=== PATIENT | male | born 2000 | race Caucasian/White ===

== ENCOUNTER 2021-07-11 13:12 | Emergency (ER) | payer SELFPAY ==
--- NOTE | 2021-07-11 14:24 | RAD REPORT ---
EXAM DESCRIPTION: RAD - Foot Right 3 View - 07/11/2021 1:57 pm CLINICAL HISTORY: PAIN, blunt force trauma to the fourth and fifth toes COMPARISON: No comparisons FINDINGS: There is no gross fracture deformity seen though the patient probably has nondisplaced fra ctures at the tuft of the fourth and fifth distal phalanges. The middle and distal phalanges of the f ifth toe are fused as a normal variant. The fourth and fifth toe IP joints are unremarkable. No other fracture or acute bone findings seen. Fourth and fifth distal toe soft tissue swelling is present without foreign body or air. IMPRESSION: Probable nondisplaced fractures of the fourth and fifth distal phalanges.
--- NOTE | 2021-07-11 14:41 | EDPHYS ---
Physician Documentation [facility] Name: Violeta Humphrey Age: 21 yrs Sex: Male : 2000 Arrival Date: 07/11/2021 Time: 13:18 Bed 10 Private MD: ED Physician Orlando Gaspar HPI: 07/11 13:31 This 21 yrs old Male presents to ER via Ambulatory with complaints of Foot jmm Pain. 13:31 The patient presents with an injury, a history of running out of pain medications. jmm Onset: The symptoms/episode began/occurred acutely, last night. Modifying factors: The symptoms are alleviated by remaining still, the symptoms are aggravated by movement. Associated signs and symptoms: Pertinent negatives calf tenderness, fever, numbness, rash, weakness. Patient states that he hit his foot against the leg of a table. Bruising developed today.. Historical: - Allergies: 13:23 No Known Allergies; tw2 - Home Meds: 13:23 None [Active]; tw2 - PMHx: 13:23 None; tw2 - PSHx: 13:23 None; tw2 - Immunization history:: Client reports having NOT received the Covid vaccine. - Social history:: Smoking status: Patient reports the use of cigarette tobacco products, smokes one-half pack cigarettes per day. ROS: 14:38 Constitutional: Negative for fever, chills, and weight loss, Cardiovascular: Negative jmm for chest pain, palpitations, and edema, Respiratory: Negative for shortness of breath, cough, wheezing, and pleuritic chest pain. 14:38 MS/extremity: Positive for injury or acute deformity, pain. 14:38 All other systems are negative. Exam: 14:38 Constitutional: This is a well developed, well nourished patient who is awake, alert, jmm and in no acute distress. Head/Face: atraumatic. Eyes: EOMI, no conjunctival erythema appreciated ENT: Moist Mucus Membranes Neck: Trachea midline, Supple Chest/axilla: Normal chest wall appearance and motion. Cardiovascular: Regular rate and rhythm. No edema appreciated Respiratory: Normal respirations, no respiratory distress appreciated Abdomen/GI: Non distended, soft Back: Normal ROM 14:38 Skin: Ecchymosis noted to the dorsal surface of the left foot at the base of the fourth and fifth metatarsal. 14:38 Neuro: Orientation: is normal, Mentation: is normal, Memory: is normal. 14:38 Psych: Behavior/mood is pleasant, cooperative. Vital Signs: 13:21 BP 125 / 79; Pulse 98; Resp 18; Temp 99.5(TE); Pulse Ox 100% on R/A; Height 5 ft. 10 tw2 in. (177.80 cm) (R); 13:54 BP 128 / 80; Pulse 99; Resp 18; Pulse Ox 100% on R/A; Pain 7/10; jh5 14:44 BP 126 / 88; Pulse 90; Resp 18; Pulse Ox 100% on R/A; jh5 MDM: 13:31 Patient medically screened. [facility] 14:39 Data reviewed: vital signs, nurses notes. Counseling: I had a detailed discussion with kay the patient and/or guardian regarding: the historical points, exam findings, and any diagnostic results supporting the discharge/admit diagnosis, radiology results, the need for outpatient follow up, to return to the emergency department if symptoms worsen or persist or if there are any questions or concerns that arise at home. 07/11 13:31 Order name: Foot Right 3 View XRAY; Complete Time: 14:29 [facility] 07/11 14:30 Order name: Misc. Order: rocky tape, ortho shoe; Complete Time: 14:35 [facility] Administered Medications: No medications were administered Disposition: 15:26 Co-signature as Attending Physician, Orlando Gaspar MD I agree with the assessment and rn plan of care. Attestation: The patient's history, exam findings, diagnostics, and a summary of any interventions or procedures was reviewed in detail with Demetrio MCKEON. Disposition Summary: 07/11/21 14:40 Discharge Ordered Location: Home [facility] Condition: Stable [facility] Diagnosis - Toe Fracture [facility] Followup: [facility] - With: Lane Arthur DPM - When: 2 - 3 days - Reason: Recheck today's complaints, Continuance of care, Re-evaluation by your physician Discharge Instructions: - Toe Fracture [facility] - Toe Fracture Rehab-SportsMed [facility] - Discharge Summary Sheet tw2 Forms: - Medication Reconciliation Form [facility] - Thank You Letter [facility] - Antibiotic Education [facility] - Work release form tw2 - Prescription Opioid Use [facility] Signatures: Dispatcher [employer] Demetrio George PA PA jmm Nieto, Roman, MD MD rn SalcidoChanell RN RN tw2
--- NOTE | 2021-07-11 14:41 | ER ---
Nurse's Notes [facility] Name: Violeta Humphrey Age: 21 yrs Sex: Male : 2000 Arrival Date: 07/11/2021 Time: 13:18 Bed 10 Private MD: Diagnosis: Toe Fracture Presentation: 07/11 13:21 Chief complaint: Patient states: my RIGHT foot is hurting. i stubbed it on a chair last tw2 night. Chief complaint: Patient states: the baby toe is bruised and swollen. Coronavirus screen: At this time, the client does not indicate any symptoms associated with coronavirus-19. Ebola Screen: Patient denies travel to an Ebola-affected area in the 21 days before illness onset. Initial Sepsis Screen: Does the patient meet any 2 criteria? No. Patient's initial sepsis screen is negative. Does the patient have a suspected source of infection? No. Patient's initial sepsis screen is negative. Risk Assessment: Do you want to hurt yourself or someone else? Patient reports no desire to harm self or others. Onset of symptoms was July 11, 2021. 13:21 Method Of Arrival: Ambulatory tw2 13:21 Acuity: NEIL 4 tw2 Triage Assessment: 13:23 General: Appears in no apparent distress. slender, well groomed, Behavior is calm, tw2 cooperative, appropriate for age. Pain: Complains of pain in right fifth toe. Historical: - Allergies: 13:23 No Known Allergies; tw2 - Home Meds: 13:23 None [Active]; tw2 - PMHx: 13:23 None; tw2 - PSHx: 13:23 None; tw2 - Immunization history:: Client reports having NOT received the Covid vaccine. - Social history:: Smoking status: Patient reports the use of cigarette tobacco products, smokes one-half pack cigarettes per day. Screenin:26 Abuse screen: Denies threats or abuse. Nutritional screening: No deficits noted. tw2 Tuberculosis screening: No symptoms or risk factors identified. Fall Risk None identified. Assessment: 13:54 General: Appears in no apparent distress. comfortable, Behavior is calm, cooperative, jh5 appropriate for age. 13:54 Pain: Complains of pain in right foot Pain does not radiate. Pain currently is 7 out of jh5 10 on a pain scale. Quality of pain is described as throbbing, Pain began suddenly, Is continuous. Neuro: Level of Consciousness is awake, alert, obeys commands, Oriented to person, place, time, situation, Appropriate for age. Cardiovascular: Capillary refill < 3 seconds Patient's skin is warm and dry. Respiratory: Airway is patent Respiratory effort is even, unlabored, Respiratory pattern is regular, symmetrical. GI: Abdomen is flat, non-distended. : No signs and/or symptoms were reported regarding the genitourinary system. EENT: No signs and/or symptoms were reported regarding the EENT system. Derm: No signs and/or symptoms reported regarding the dermatologic system. Musculoskeletal: No signs and/or symptoms reported regarding the musculoskeletal system. 14:44 Reassessment: Patient appears in no apparent distress at this time. Patient is alert, jh5 oriented x 3, equal unlabored respirations, skin warm/dry/pink. Vital Signs: 13:21 BP 125 / 79; Pulse 98; Resp 18; Temp 99.5(TE); Pulse Ox 100% on R/A; Height 5 ft. 10 tw2 in. (177.80 cm) (R); 13:54 BP 128 / 80; Pulse 99; Resp 18; Pulse Ox 100% on R/A; Pain 7/10; jh5 14:44 BP 126 / 88; Pulse 90; Resp 18; Pulse Ox 100% on R/A; jh5 ED Course: 13:18 Patient arrived in ED. mr 13:23 Triage completed. tw2 13:23 Arm band placed on. tw2 13:24 Bed in low position. Call light in reach. tw2 13:25 Demetrio Carrera PA is PHCP. [facility] 13:25 Orlando Gaspar MD is Attending Physician. [facility] 13:53 Imani Malagon, DOMONIQUE is Primary Nurse. 5 13:54 No provider procedures requiring assistance completed. jh5 13:58 Foot Right 3 View XRAY In Process Unspecified. EDMS 14:39 Lane Arthur DPM is Referral Physician. [facility] 14:44 Patient did not have IV access during this emergency room visit. 5 Administered Medications: No medications were administered Outcome: 14:40 Discharge ordered by MD. [facility] 14:44 Discharged to home ambulatory. [facility] 14:44 Condition: stable 14:44 Discharge instructions given to patient, Instructed on discharge instructions, follow up and referral plans. Demonstrated understanding of instructions, follow-up care. 14:44 Patient left the ED. jh5 Signatures: Dispatcher [employer] Demetrio George PA PA jmm Rivera, Mary mr Omari Chanell, RN RN tw2 Imani Malagon RN RN jh5
[2021-07-11 15:12] VITALS: TEMP 99.5; O2SAT 100
[2021-07-11 15:15] VITALS: BP 126/88
== END 2021-07-11 14:44 | disposition home or self-care (01) ==
LOC: ER 13:12
DX: S92.534A Nondisplaced fracture of distal phalanx of right lesser toe(s), initial encounter for closed fracture (principal); W22.03XA Walked into furniture, initial encounter; F17.210 Nicotine dependence, cigarettes, uncomplicated
CPT/HCPCS: 99283

== ENCOUNTER 2021-10-04 17:55 | Emergency (ER) | payer SELFPAY ==
[2021-10-04 20:28] LABS: SARS-COV-2 RT PCR NEGATIVE (NEGATIVE)
--- NOTE | 2021-10-04 20:50 | EDPHYS ---
Physician Documentation [facility] Name: Violeta Humphrey Age: 21 yrs Sex: Male : 2000 Arrival Date: 10/04/2021 Time: 17:55 Bed 18 Private MD: ED Physician Orlando Gaspar HPI: 10/04 19:58 This 21 yrs old Male presents to ER via Ambulatory with complaints of Sore Throat, rn Headache. 19:58 The patient presents with sore throat. The patient describes throat pain as raw, rn scratchy. Onset: The symptoms/episode began/occurred 3 day(s) ago. Severity of symptoms: At their worst the symptoms were mild, in the emergency department the symptoms are unchanged. Modifying factors: The symptoms are alleviated by nothing, the symptoms are aggravated by nothing. Associated signs and symptoms: Pertinent positives: headache, rhinorrhea, Pertinent negatives fever, vomiting. The patient has not experienced similar symptoms in the past. The patient has not recently seen a physician. Patient reports 3 days of sore throat and rhinorrhea associated with headache. No fever. Reports 3 daughters with seen by clay art[employer] as they have similar symptoms and were diagnosed with upper respiratory infections without need for antibiotics. Patient denies shortness of breath.. Historical: - Allergies: 18:16 No Known Allergies; jl7 - Home Meds: 18:16 None [Active]; jl7 - PMHx: 18:16 None; jl7 - PSHx: 18:16 None; jl7 - Immunization history:: Client reports having NOT received the Covid vaccine. - Social history:: Smoking status: Patient reports the use of cigarette tobacco products, smokes one pack cigarettes per day. - Family history:: not pertinent. - Hospitalizations: : No recent hospitalization is reported. ROS: 19:58 Constitutional: Negative for fever, chills, and weight loss, Eyes: Negative for injury, rn pain, redness, and discharge, ENT: Positive for sore throat and rhinorrhea Neck: Negative for injury, pain, and swelling, Cardiovascular: Negative for chest pain, palpitations, and edema, Respiratory: Negative for shortness of breath, wheezing, and pleuritic chest pain, Abdomen/GI: Negative for abdominal pain, nausea, vomiting, diarrhea, and constipation, Back: Negative for injury and pain, : Negative for injury, bleeding, discharge, and swelling, MS/Extremity: Negative for injury and deformity, Skin: Negative for injury, rash, and discoloration, Neuro: Positive for headache Exam: 19:58 Constitutional: This is a well developed, well nourished patient who is awake, alert, rn and in no acute distress. Head/Face: Normocephalic, atraumatic. Eyes: Periorbital areas with no swelling, redness, or edema. ENT: Mild pharyngeal erythema without swelling or exudate Neck: Tender bilateral cervical lymphadenopathy Cardiovascular: Regular rate and rhythm. No pulse deficits. Respiratory: Speaking full sentences, unlabored. No increased work of breathing Abdomen/GI: Soft, non-tender Skin: Warm, dry MS/ Extremity: Pulses equal, no cyanosis. Neuro: Awake and alert, GCS 15 Vital Signs: 18:14 BP 124 / 66; Pulse 78; Resp 17; Temp 97.1; Pulse Ox 97% ; Weight 70.31 kg; Height 5 ft. jl7 10 in. (177.80 cm); Pain 5/10; 18:28 BP 121 / 53; Pulse 72; Resp 15; Pulse Ox 98% ; Pain 5/10; eo2 19:33 BP 119 / 68; Pulse 74; Resp 16 S; Pulse Ox 97% on R/A; lg3 21:13 BP 112 / 63; Pulse 66; Resp 16 S; Pulse Ox 97% on R/A; Pain 0/10; lg3 18:14 Body Mass Index 22.24 (70.31 kg, 177.80 cm) jl7 MDM: 19:01 Patient medically screened. rn 20:48 Differential diagnosis: group A strep tonsillitis, influenza, laryngitis, pharyngitis, rn upper respiratory infection, viral syndrome. Data reviewed: vital signs, nurses notes, lab test result(s), and as a result, I will discharge patient. Counseling: I had a detailed discussion with the patient and/or guardian regarding: the historical points, exam findings, and any diagnostic results supporting the discharge/admit diagnosis, lab results, the need for outpatient follow up, to return to the emergency department if symptoms worsen or persist or if there are any questions or concerns that arise at home. Special discussion: I discussed with the patient/guardian in detail that at this point there is no indication for admission to the hospital. It is understood, however, that if the symptoms persist or worsen the patient needs to return immediately for re-evaluation. ED course: COVID/Flu/Strep neg, daughters also tested and negative, told had viral infections, will dc home without abx, given return precautions.. 10/04 19:16 Order name: Strep; Complete Time: 20:48 rn 10/04 19:16 Order name: COVID-19/FLU A+B (Document "Date of Onset" if Symptomatic); Complete Time: rn 20:48 10/04 19:53 Order name: Throat Culture EDMS Administered Medications: No medications were administered Disposition Summary: 10/04/21 20:49 Discharge Ordered Location: Home rn Problem: new rn Symptoms: have improved rn Condition: Stable rn Diagnosis - Acute upper respiratory infection, unspecified rn Followup: rn - With: Private Physician - When: As needed - Reason: Recheck today's complaints, Re-evaluation by your physician Discharge Instructions: - Discharge Summary Sheet rn - Upper Respiratory Infection, Adult rn - Viral Respiratory Infection rn Forms: - Medication Reconciliation Form rn - Thank You Letter rn - Antibiotic information technology intern - Prescription Opioid Use rn - Work release form cs9 Signatures: Dispatcher [employer] EDMS Orlando Gaspar MD MD rn Leal, Jahala RN RN jl7
--- NOTE | 2021-10-04 20:50 | ER ---
Nurse's Notes [facility] Name: Violeta Humphrey Age: 21 yrs Sex: Male : 2000 Arrival Date: 10/04/2021 Time: 17:55 Bed 18 Private MD: Diagnosis: Acute upper respiratory infection, unspecified Presentation: 10/04 18:14 Chief complaint: Patient states: Sore throat and CHO since yesterday, denies fever. jl7 Coronavirus screen: headache, sore throat, Client presents with at least one sign or symptom that may indicate coronavirus-19. Standard/surgical mask placed on the client. Provider contacted for isolation considerations. Ebola Screen: No symptoms or risks identified at this time. Initial Sepsis Screen: Does the patient meet any 2 criteria? No. Patient's initial sepsis screen is negative. Does the patient have a suspected source of infection? No. Patient's initial sepsis screen is negative. Risk Assessment: Do you want to hurt yourself or someone else? Patient reports no desire to harm self or others. Onset of symptoms was October 03, 2021. Care prior to arrival: None. 18:14 Method Of Arrival: Ambulatory [facility] 18:14 Acuity: NEIL 4 jl7 Triage Assessment: 18:16 General: Appears in no apparent distress. uncomfortable, Behavior is calm, cooperative, jl7 appropriate for age. Pain: Complains of pain in sore throat. EENT: Reports pain in throat. Historical: - Allergies: 18:16 No Known Allergies; jl7 - Home Meds: 18:16 None [Active]; jl7 - PMHx: 18:16 None; jl7 - PSHx: 18:16 None; jl7 - Immunization history:: Client reports having NOT received the Covid vaccine. - Social history:: Smoking status: Patient reports the use of cigarette tobacco products, smokes one pack cigarettes per day. - Family history:: not pertinent. - Hospitalizations: : No recent hospitalization is reported. Screenin:28 Abuse screen: Denies threats or abuse. Denies injuries from another. Nutritional eo2 screening: No deficits noted. Tuberculosis screening: No symptoms or risk factors identified. Fall Risk None identified. Assessment: 18:28 General: Appears in no apparent distress. comfortable, Behavior is calm, cooperative, eo2 appropriate for age. Pain: Complains of pain in sore throat and headache. Neuro: Level of Consciousness is awake, alert, obeys commands, Oriented to person, place, time, situation, Reports headache since yesterday Denies weakness blurred vision numbness. Cardiovascular: No deficits noted. Denies chest pain, shortness of breath. Respiratory: Airway is patent Respiratory effort is even, unlabored, Breath sounds are clear bilaterally. EENT: Throat is clear reports sore throat onset yesterday. 19:32 Reassessment: Patient appears in no apparent distress at this time. No changes from lg3 previously documented assessment. Patient and/or family updated on plan of care and expected duration. Pain level reassessed. Patient is alert, oriented x 3, equal unlabored respirations, skin warm/dry/pink. Vital Signs: 18:14 BP 124 / 66; Pulse 78; Resp 17; Temp 97.1; Pulse Ox 97% ; Weight 70.31 kg; Height 5 ft. jl7 10 in. (177.80 cm); Pain 5/10; 18:28 BP 121 / 53; Pulse 72; Resp 15; Pulse Ox 98% ; Pain 5/10; eo2 19:33 BP 119 / 68; Pulse 74; Resp 16 S; Pulse Ox 97% on R/A; lg3 21:13 BP 112 / 63; Pulse 66; Resp 16 S; Pulse Ox 97% on R/A; Pain 0/10; lg3 18:14 Body Mass Index 22.24 (70.31 kg, 177.80 cm) jl7 ED Course: 17:55 Patient arrived in ED. am2 18:16 Triage completed. jl7 18:16 Arm band placed on right wrist. jl7 18:21 Katarzyna Bolanos, DOMONIQUE is Primary Nurse. eo2 18:28 Patient has correct armband on for positive identification. eo2 18:28 No provider procedures requiring assistance completed. Patient did not have IV access eo2 during this emergency room visit. 19:00 Report given to Cristina YOUSSEF. eo2 19:01 Orlando Gaspar MD is Attending Physician. rn 19:14 Primary Nurse role handed off by Katarzyna Bolanos RN cs9 19:23 Cristina Andrews RN is Primary Nurse. lg3 19:32 COVID-19/FLU A+B (Document "Date of Onset" if Symptomatic) Sent. lg3 19:32 Strep Sent. lg3 20:28 Throat Culture Sent. lg3 20:29 COVID-19/FLU A+B (Document "Date of Onset" if Symptomatic) Sent. lg3 Administered Medications: No medications were administered Outcome: 20:49 Discharge ordered by . rn 21:14 Discharged to home ambulatory. lg3 21:14 Condition: good 21:14 Discharge instructions given to patient, Instructed on discharge instructions. 21:15 Patient left the ED. lg3 Signatures: Orlando Gaspar MD MD rn Leal, Jahala RN RN jl7 Cassy Robins Lacie RN RN lg3 Coty [place] cs9 Katarzyna Bolanos, RN RN eo2
[2021-10-05 00:24] VITALS: TEMP 97.1
[2021-10-05 00:27] VITALS: O2SAT 97
[2021-10-05 00:28] VITALS: BP 112/63
== END 2021-10-04 21:15 | disposition home or self-care (01) ==
LOC: ER 17:55
DX: J06.9 Acute upper respiratory infection, unspecified (principal); Z20.822 Contact with and (suspected) exposure to COVID-19; F17.210 Nicotine dependence, cigarettes, uncomplicated
CPT/HCPCS: 0240U; 87070; 87081; 99283

== ENCOUNTER 2021-12-11 19:14 | Emergency (ER) | payer BC, SELFPAY ==
[2021-12-11 21:03] LABS: Urine Blood Negative (Negative); Urine Glucose Negative (Negative); Urine Protein Negative (Negative); Urine Specific Gravity <=1.005 (1.005-1.030)
--- NOTE | 2021-12-11 21:57 | EDPHYS ---
Physician Documentation [facility] Name: Violeta Humphrey Age: 21 yrs Sex: Male : 2000 Arrival Date: 12/11/2021 Time: 20:06 Bed 11 Private MD: ED Physician Orlando Gaspar HPI: 12/11 20:23 This 21 yrs old Male presents to ER via Ambulatory with complaints of Flank Pain. jmm 20:23 The patient complains of pain in the left low back. Onset: The symptoms/episode jmm began/occurred gradually, 3 day(s) ago. Modifying factors: The symptoms are alleviated by nothing. the symptoms are aggravated by movement. Associated signs and symptoms: Pertinent negatives: dysuria, fever, vomiting. The patient has not experienced similar symptoms in the past. Historical: - Allergies: 20:16 No Known Allergies; as6 - Home Meds: 20:16 None [Active]; as6 - PMHx: 20:16 None; as6 - PSHx: 20:16 None; as6 - Immunization history:: Client reports having NOT received the Covid vaccine. - Social history:: Smoking status: Patient reports the use of cigarette tobacco products, smokes one pack cigarettes per day. ROS: 20:16 Constitutional: Negative for fever, chills, and weight loss, Cardiovascular: Negative jmm for chest pain, palpitations, and edema, Respiratory: Negative for shortness of breath, cough, wheezing, and pleuritic chest pain. 20:16 Back: Positive for pain with movement. 20:16 All other systems are negative. Exam: 20:16 Constitutional: This is a well developed, well nourished patient who is awake, alert, jmm and in no acute distress. Head/Face: atraumatic. Eyes: EOMI, no conjunctival erythema appreciated ENT: Moist Mucus Membranes Neck: Trachea midline, Supple Chest/axilla: Normal chest wall appearance and motion. Cardiovascular: Regular rate and rhythm. No edema appreciated Respiratory: Normal respirations, no respiratory distress appreciated Abdomen/GI: Non distended, soft 20:16 Skin: General appearance color normal MS/ Extremity: Moves all extremities, no obvious deformities appreciated, no edema noted to the lower extremities Neuro: Awake and alert Psych: Behavior is normal, Mood is normal, Patient is cooperative and pleasant 20:16 Back: muscle spasm, is appreciated in the left low back. 20:16 Back: CVA tenderness, is absent. Vital Signs: 20:13 BP 108 / 81; Pulse 88; Resp 18; Temp 98.6(O); Pulse Ox 100% on R/A; Weight 68.04 kg as6 (R); Height 5 ft. 10 in. (177.80 cm) (R); Pain 6/10; 20:13 Body Mass Index 21.52 (68.04 kg, 177.80 cm) as6 MDM: 20:33 Patient medically screened. [facility] 21:54 Data reviewed: vital signs, nurses notes. Counseling: I had a detailed discussion with kay the patient and/or guardian regarding: the historical points, exam findings, and any diagnostic results supporting the discharge/admit diagnosis, lab results, the need for outpatient follow up, to return to the emergency department if symptoms worsen or persist or if there are any questions or concerns that arise at home. Admission orders: after a detailed discussion of the patient's condition and case, the admit orders are written by me. ED course: Patient is alert nontoxic in appearance in the ED. I do not [place] suspect pyelonephritis. I do not suspect nephrolithiasis or ureterolithiasis. Patient will be put on a course of anti-inflammatories muscle relaxers. Patient otherwise given strict return precautions. Patient understood and agrees plan of care.. 12/11 21:03 Order name: Urine Dipstick-Ancillary; Complete Time: 21:15 EDNM 12/11 20:23 Order name: Urine Dipstick-Ancillary (obtain specimen); Complete Time: 21:08 [facility] Administered Medications: 21:53 Drug: Ketorolac 30 mg Route: IM; Site: left deltoid; jb4 22:12 Follow up: Response: No adverse reaction jb4 Disposition: 23:38 Co-signature as Attending Physician, Orlando Gaspar MD. rn Disposition Summary: 12/11/21 21:56 Discharge Ordered Location: Home kay Condition: Stable kay Diagnosis - Low back pain kay Followup: kay - With: Private Physician - When: 2 - 3 days - Reason: Recheck today's complaints, Continuance of care, Re-evaluation by your physician Discharge Instructions: - Discharge Summary Sheet kay - Acute Back Pain, Adult kay Forms: - Medication Reconciliation Form [facility] - Thank You Letter kay - Antibiotic Education joie - Prescription Opioid Use [facility] Prescriptions: - Ibuprofen 800 mg Oral Tablet - take 1 tablet by ORAL route every 8 hours As needed take with food; 30 tablet; [facility] Refills: 0, Product Selection Permitted - orphenadrine citrate 100 mg Oral Tablet Sustained Release - take 1 tablet by ORAL route 2 times per day As needed; 20 tablet; Refills: 0, [facility] Product Selection Permitted Signatures: Demetrio Carrera PA PA jmm Nieto, Roman, MD MD rn Bryson, James RN RN jb4 Vladimir Chu RN RN as6
--- NOTE | 2021-12-11 21:57 | ER ---
Nurse's Notes [facility] Name: Violeta Humphrey Age: 21 yrs Sex: Male : 2000 Arrival Date: 12/11/2021 Time: 20:06 Bed 11 Private MD: Diagnosis: Low back pain Presentation: 12/11 20:13 Chief complaint: Patient states: "I've been having kidney pain since last night" pt c/o as6 bilateral flank pain. Coronavirus screen: At this time, the client does not indicate any symptoms associated with coronavirus-19. Ebola Screen: No symptoms or risks identified at this time. Initial Sepsis Screen: Does the patient meet any 2 criteria? No. Patient's initial sepsis screen is negative. Does the patient have a suspected source of infection? No. Patient's initial sepsis screen is negative. Risk Assessment: Do you want to hurt yourself or someone else? Patient reports no desire to harm self or others. Onset of symptoms was December 10, 2021. 20:13 Method Of Arrival: Ambulatory as6 20:13 Acuity: NEIL 3 as6 Triage Assessment: 20:16 General: Appears in no apparent distress. Behavior is calm, cooperative. Pain: as6 Complains of pain in left flank and right flank. Historical: - Allergies: 20:16 No Known Allergies; as6 - Home Meds: 20:16 None [Active]; as6 - PMHx: 20:16 None; as6 - PSHx: 20:16 None; as6 - Immunization history:: Client reports having NOT received the Covid vaccine. - Social history:: Smoking status: Patient reports the use of cigarette tobacco products, smokes one pack cigarettes per day. Screenin:07 Abuse screen: Denies threats or abuse. Nutritional screening: No deficits noted. jb4 Tuberculosis screening: No symptoms or risk factors identified. Fall Risk None identified. Assessment: 22:07 General: Appears in no apparent distress. comfortable, Behavior is calm, cooperative, jb4 appropriate for age. Pain: Complains of pain in low back area Pain does not radiate. Pain currently is 6 out of 10 on a pain scale. Neuro: Level of Consciousness is awake, alert, obeys commands, Oriented to person, place, time, situation. Cardiovascular: Patient's skin is warm and dry. Respiratory: Airway is patent Respiratory effort is even, unlabored, Respiratory pattern is regular, symmetrical. GI: No signs and/or symptoms were reported involving the gastrointestinal system. : No signs and/or symptoms were reported regarding the genitourinary system. EENT: No signs and/or symptoms were reported regarding the EENT system. Derm: Skin is intact, Skin is pink, warm \\T\\ dry. Musculoskeletal: Circulation, motion, and sensation intact. Range of motion: intact in all extremities. Vital Signs: 20:13 BP 108 / 81; Pulse 88; Resp 18; Temp 98.6(O); Pulse Ox 100% on R/A; Weight 68.04 kg as6 (R); Height 5 ft. 10 in. (177.80 cm) (R); Pain 6/10; 20:13 Body Mass Index 21.52 (68.04 kg, 177.80 cm) as6 ED Course: 20:06 Patient arrived in ED. bp1 20:07 Demetrio Carrera PA is [facility] 20:07 Orlando Gaspar MD is Attending Physician. [facility] 20:15 Triage completed. as6 20:16 Arm band placed on. as6 21:47 Shahid Cadet, DOMONIQUE is Primary Nurse. jb4 22:07 Patient has correct armband on for positive identification. Bed in low position. Call jb4 light in reach. Side rails up X 1. 22:07 No provider procedures requiring assistance completed. Patient did not have IV access jb4 during this emergency room visit. Administered Medications: 21:53 Drug: Ketorolac 30 mg Route: IM; Site: left deltoid; jb4 22:12 Follow up: Response: No adverse reaction jb4 Outcome: 21:56 Discharge ordered by . [facility] 22:07 Discharged to home ambulatory. jb4 22:07 Condition: stable 22:07 Discharge instructions given to patient, Instructed on discharge instructions, follow up and referral plans. no drinking with medication, no driving heavy equipment, medication usage, Demonstrated understanding of instructions, follow-up care, medications, Prescriptions given X 2. 22:12 Patient left the ED. jb4 Signatures: Demetrio Carrera PA PA [facility] Shahid Cadet, RN RN jb4 Susanne Vilchis [facility] Vladimir Chu RN RN as6
[2021-12-11 22:54] VITALS: BP 108/81; TEMP 98.6; O2SAT 100
== END 2021-12-11 22:12 | disposition home or self-care (01) ==
LOC: ER 19:14
DX: M54.50 Low back pain, unspecified (principal); F17.210 Nicotine dependence, cigarettes, uncomplicated
CPT/HCPCS: 81003; 96372; 99283

== ENCOUNTER 2022-01-31 16:21 | Emergency (ER) | payer BC, SELFPAY ==
[2022-01-31 17:28] LABS: Absolute Lymphocytes (CBC) 1.3 K/uL (0.7-4.9); Hematocrit 50.1 % (39.6-49.0); Lymphocytes % 20.7 % (15.3-44.8); RBC Red Blood Cell Count 5.72 M/uL (4.33-5.43)
[2022-01-31 17:33] LABS: Protime INR 1.01
[2022-01-31 17:44] LABS: ALT/SGPT 23 U/L (12-78); AST/SGOT 14 U/L (15-37); Albumin 4.4 g/dL (3.4-5.0); BUN Blood Urea Nitrogen 14 mg/dL (7-18); Bicarbonate 27 mmol/L (21-32); Bilirubin Direct 0.2 mg/dL (0-0.2); Bilirubin Total 0.6 mg/dL (0.2-1.0); Glomerular Filtration Rate 126 ml/min (=/>90); Glucose Level 86 mg/dL (74-106); Magnesium 2.5 mg/dL (1.8-2.4); Potassium 3.8 mmol/L (3.5-5.1); Protein, Total 7.9 g/dL (6.4-8.2); Sodium Level 140 mmol/L (136-145)
[2022-01-31 17:49] LABS: Alkaline Phosphatase 86 U/L (45-117); NT PRO-BNP 11 pg/mL (<125)
[2022-01-31 17:51] LABS: Troponin High Sensitivity < 3.0 pg/mL (<58.9)
[2022-01-31] MEDS ORDERED: LIDOCAINE VISCOUS 2% SOLN 15 ML UDC ONE (18:17)
[2022-01-31] MEDS ORDERED: MAGNES/ALUMIN/SIMET 30ML UCUP ONE (18:17)
--- NOTE | 2022-01-31 18:20 | RAD REPORT ---
EXAM DESCRIPTION: RAD - Chest Single View - 01/31/2022 5:39 pm CLINICAL HISTORY: CHEST PAIN Chest pain. COMPARISON: No comparisonsNo comparisons FINDINGS: Portable technique limits examination quality. The lungs are grossly clear. The heart is normal in size. No displaced fractures. IMPRESSION: No acute intrathoracic process suspected.
--- NOTE | 2022-01-31 19:26 | EDPHYS ---
Physician Documentation [facility] Name: Violeta Humphrey Age: 21 yrs Sex: Male : 2000 Arrival Date: 01/31/2022 Time: 16:25 Bed 12 Private MD: ED Physician Orlando Gaspar HPI: 01/31 16:44 This 21 yrs old Male presents to ER via Ambulatory with complaints of Chest Pain, jmm Shortness Of Breath. 16:44 The patient or guardian reports chest pain that is located primarily in the substernal jmm area. The pain does not radiate. Associated signs and symptoms: Pertinent positives: abdominal pain. The chest pain is described as a pressure, sharp. Duration: The patient or guardian reports a single episode, that is still ongoing, and unchanged. This is a 21 year old male with no chronic medical conditions that presents to the ED with complaints of substernal chest pain beginning this past Sunday. Pain has been constant. Patient also complains of sob. Denies fever, leg swelling, hemoptysis, recent surgery, revious dvt or PE. Historical: - Allergies: 16:43 No Known Allergies; jb4 - Home Meds: 16:43 None [Active]; jb4 - PMHx: 16:43 None; jb4 - PSHx: 16:43 None; jb4 - Immunization history:: Adult Immunizations up to date. - Social history:: Smoking status: Patient reports the use of cigarette tobacco products, smokes one pack cigarettes per day. ROS: 16:44 Constitutional: Negative for fever, chills, and weight loss. jmm 16:44 Cardiovascular: Positive for chest pain. 16:44 Respiratory: Positive for shortness of breath. 16:44 All other systems are negative. Exam: 16:44 Constitutional: This is a well developed, well nourished patient who is awake, alert, jmm and in no acute distress. Head/Face: atraumatic. Eyes: EOMI, no conjunctival erythema appreciated ENT: Moist Mucus Membranes Neck: Trachea midline, Supple Chest/axilla: Normal chest wall appearance and motion. Cardiovascular: Regular rate and rhythm. No edema appreciated Respiratory: Normal respirations, no respiratory distress appreciated Abdomen/GI: Non distended, soft Back: Normal ROM 16:44 Skin: General appearance color normal MS/ Extremity: Moves all extremities, no obvious deformities appreciated, no edema noted to the lower extremities Neuro: Awake and alert Psych: Behavior is normal, Mood is normal, Patient is cooperative and pleasant 16:44 Abdomen/GI: Inspection: abdomen appears normal, Bowel sounds: normal, Palpation: abdomen is soft and non-tender, in all quadrants. Vital Signs: 16:42 BP 114 / 70; Pulse 88; Resp 16; Temp 98.3(O); Pulse Ox 98% on R/A; Weight 68.04 kg (R); jb4 Height 5 ft. 10 in. (177.80 cm) (R); Pain 4/10; 19:48 BP 108 / 67; Pulse 82; Resp 16; Pulse Ox 100% on R/A; jb4 16:42 Body Mass Index 21.52 (68.04 kg, 177.80 cm) [facility] MDM: 17:03 Patient medically screened. [facility] 19:25 Data reviewed: vital signs, nurses notes. Counseling: I had a detailed discussion with kay the patient and/or guardian regarding: the historical points, exam findings, and any diagnostic results supporting the discharge/admit diagnosis, the need for outpatient follow up, to return to the emergency department if symptoms worsen or persist or if there are any questions or concerns that arise at home. 20:51 ED course: PERC negative. [facility] 01/31 17:04 Order name: Basic Metabolic Panel; Complete Time: 18:08 [facility] 01/31 17:04 Order name: CBC with Diff; Complete Time: 18:08 [facility] 01/31 17:04 Order name: LFT's; Complete Time: 18:08 [facility] 01/31 17:04 Order name: Magnesium; Complete Time: 18:08 [facility] 01/31 17:04 Order name: NT PRO-BNP; Complete Time: 18:08 [facility] 01/31 17:04 Order name: PT-INR; Complete Time: 18:08 [facility] 01/31 16:44 Order name: EKG - Nurse/Tech; Complete Time: 17:20 [facility] 01/31 17:04 Order name: Troponin HS; Complete Time: 18:08 [facility] 01/31 17:04 Order name: XRAY Chest (1 view); Complete Time: 18:23 [facility] 01/31 17:04 Order name: EKG; Complete Time: 17:04 [facility] 01/31 17:04 Order name: Cardiac monitoring; Complete Time: 17:20 [facility] 01/31 17:04 Order name: EKG - Nurse/Tech; Complete Time: 17:20 [facility] 01/31 17:04 Order name: IV Saline Lock; Complete Time: 17:20 [facility] 01/31 17:04 Order name: Labs collected and sent; Complete Time: 17:20 [facility] 01/31 17:04 Order name: O2 Per Protocol; Complete Time: 17:20 [facility] 01/31 17:04 Order name: O2 Sat Monitoring; Complete Time: 17:20 [facility] Administered Medications: 18:15 Drug: GI Cocktail without - (Maalox Suspension 30 ml, Lidocaine Liquid 2 % 15 iw ml) Route: PO; Disposition Summary: 01/31/22 19:26 Discharge Ordered Location: Home [facility] Condition: Stable [facility] Diagnosis - Chest pain, unspecified m Followup: [facility] - With: Private Physician - When: 2 - 3 days - Reason: Recheck today's complaints, Continuance of care, Re-evaluation by your physician Followup: [facility] - With: Tyree Corea MD - When: 2 - 3 days - Reason: Recheck today's complaints, Continuance of care, Re-evaluation by your physician Discharge Instructions: - Discharge Summary Sheet [facility] - Nonspecific Chest Pain, Adult [facility] Forms: - Medication Reconciliation Form [facility] - Thank You Letter [facility] - Work release form [facility] - Antibiotic Education [facility] - Prescription Opioid Use [facility] Prescriptions: - Pepcid 20 mg Oral Tablet - take 1 tablet by ORAL route every 12 hours for 10 days; 20 tablet; Refills: 0, [facility] Product Selection Permitted Addendum: 02/01/2022 23:27 Co-signature as Attending Physician, Orlando Gaspar MD. r n Signatures: Dispatcher [employer] Demetrio George PA PA jmm Williams, Irene, RN RN iw Nieto, Roman, MD MD rn Bryson, James, RN RN jb4
--- NOTE | 2022-01-31 19:26 | ER ---
Nurse's Notes [facility] Name: Violeta Humphrey Age: 21 yrs Sex: Male : 2000 Arrival Date: 01/31/2022 Time: 16:25 Bed 12 Private MD: Diagnosis: Chest pain, unspecified Presentation: 01/31 16:42 Chief complaint: Patient states: I started having chest pain and SOB since Sunday. It jb4 is all in my mid upper chest. It just feels like something sitting on my chest. Coronavirus screen: At this time, the client does not indicate any symptoms associated with coronavirus-19. Ebola Screen: No symptoms or risks identified at this time. Initial Sepsis Screen: Does the patient meet any 2 criteria? No. Patient's initial sepsis screen is negative. Does the patient have a suspected source of infection? No. Patient's initial sepsis screen is negative. Risk Assessment: Do you want to hurt yourself or someone else? Patient reports no desire to harm self or others. Onset of symptoms was January 31, 2022. Transition of care: patient was not received from another setting of care. 16:42 Method Of Arrival: Ambulatory jb4 16:42 Acuity: NEIL 3 jb4 Historical: - Allergies: 16:43 No Known Allergies; jb4 - Home Meds: 16:43 None [Active]; jb4 - PMHx: 16:43 None; jb4 - PSHx: 16:43 None; jb4 - Immunization history:: Adult Immunizations up to date. - Social history:: Smoking status: Patient reports the use of cigarette tobacco products, smokes one pack cigarettes per day. Screenin:48 Abuse screen: Denies threats or abuse. Nutritional screening: No deficits noted. jb4 Tuberculosis screening: No symptoms or risk factors identified. Fall Risk None identified. Assessment: 17:00 General: Appears in no apparent distress. comfortable, Behavior is calm, cooperative, jb4 appropriate for age. Pain: Complains of pain in chest Pain does not radiate. Pain currently is 6 out of 10 on a pain scale. Quality of pain is described as pressure. Neuro: Level of Consciousness is awake, alert, obeys commands, Oriented to person, place, time, situation. Cardiovascular: Respiratory: Airway is patent Respiratory effort is even, unlabored, Respiratory pattern is regular, symmetrical. Derm: Skin is intact, Skin is pink, warm \T\ dry. 19:48 Reassessment: Patient appears in no apparent distress at this time. Patient and/or jb4 family updated on plan of care and expected duration. Pain level reassessed. Patient is alert, oriented x 3, equal unlabored respirations, skin warm/dry/pink. Vital Signs: 16:42 BP 114 / 70; Pulse 88; Resp 16; Temp 98.3(O); Pulse Ox 98% on R/A; Weight 68.04 kg (R); jb4 Height 5 ft. 10 in. (177.80 cm) (R); Pain 4/10; 19:48 BP 108 / 67; Pulse 82; Resp 16; Pulse Ox 100% on R/A; jb4 16:42 Body Mass Index 21.52 (68.04 kg, 177.80 cm) jb4 ED Course: 16:25 Patient arrived in ED. rg4 16:43 Triage completed. jb4 16:43 Arm band placed on right wrist. jb4 16:45 Demetrio Carrera PA is PHCP. jmm 16:45 Orlando Gaspar MD is Attending Physician. jmm 17:41 XRAY Chest (1 view) In Process Unspecified. EDMS 18:14 Ashley Davila, RN is Primary Nurse. iw 19:26 Tyree Corea MD is Referral Physician. [facility] 19:48 Patient has correct armband on for positive identification. Client placed on continuous jb4 cardiac and pulse oximetry monitoring. NIBP monitoring applied. 19:48 No provider procedures requiring assistance completed. IV discontinued, intact, jb4 bleeding controlled, No redness/swelling at site. Pressure dressing applied. Patient maintains SpO2 saturation greater than 95% on room air. Administered Medications: 18:15 Drug: GI Cocktail without - (Maalox Suspension 30 ml, Lidocaine Liquid 2 % 15 iw ml) Route: PO; Medication: 19:48 VIS not applicable for this client. jb4 Outcome: 19:26 Discharge ordered by . [facility] 19:48 Discharged to home ambulatory. jb4 19:48 Condition: stable 19:48 Discharge instructions given to patient, Instructed on discharge instructions, follow up and referral plans. medication usage, Demonstrated understanding of instructions, follow-up care, medications, Prescriptions given X 1. 19:49 Patient left the ED. jb4 Signatures: Dispatcher [employer] EDMS Demetrio Carrera PA PA jmm Williams, Irene, RN Radha Collins rg4 Shahid Cadet RN RN jb4
[2022-01-31 19:57] VITALS: TEMP 98.3
[2022-01-31 19:59] VITALS: BP 108/67; O2SAT 100
--- NOTE | 2022-02-01 07:54 | EKG ---
Test Date: 2022-01-31 Test Time: 17:11:11 Travel Specialist: CHRISSY MEASUREMENT RESULTS: Intervals: Rate: 82 HI: 138 QRSD: 84 QT: 354 QTc: 413 [place]: P: 75 HI: 138 QRS: 76 T: 67 INTERPRETIVE STATEMENTS: Normal sinus rhythm Normal ECG No previous ECG available for comparison Electronically Signed On 02-01-22 07:52:33 CDT by Trent Barnett
== END 2022-01-31 19:49 | disposition home or self-care (01) ==
LOC: ER 16:21
DX: R07.9 Chest pain, unspecified (principal); R06.02 Shortness of breath; F17.210 Nicotine dependence, cigarettes, uncomplicated
CPT/HCPCS: 36415; 71045; 80048; 80076; 83735; 83880; 84484; 85025; 85610; 93005; 99284

== ENCOUNTER 2022-03-24 14:29 | Emergency (ER) | payer BC ==
[2022-03-24] MEDS ORDERED: ACETAMINOPHEN 500 MG TAB ONE (15:47)
--- NOTE | 2022-03-24 16:56 | EDPHYS ---
Physician Documentation [facility] Name: Violeta Humphrey Age: 22 yrs Sex: Male : 2000 Arrival Date: 03/24/2022 Time: 14:31 Bed Waiting Private MD: ED Physician Edgard Batres HPI: 03/24 15:45 This 22 yrs old Male presents to ER via Ambulatory with complaints of Headache, Body jh7 aches. 15:45 22-year-old male presents with headache, body aches, and fever since 230 this morning. jh7 He has no medical problems and denies any other symptoms at this time.. Historical: - Allergies: 15:43 No Known Allergies; iw - Home Meds: 15:43 None [Active]; iw - PMHx: 15:43 None; iw - Immunization history:: Adult Immunizations unknown. - Social history:: Smoking status: . ROS: 15:45 Eyes: Negative for injury, pain, redness, and discharge, ENT: Negative for injury, jh7 pain, and discharge, Cardiovascular: Negative for chest pain, palpitations, and edema, Respiratory: Negative for shortness of breath, cough, wheezing, and pleuritic chest pain, Abdomen/GI: Negative for abdominal pain, nausea, vomiting, diarrhea, and constipation, Skin: Negative for injury, rash, and discoloration. 15:45 Constitutional: Positive for body aches, fever, Negative for poor PO intake. 15:45 Neuro: Positive for headache, Negative for altered mental status, dizziness, syncope. 15:45 All other systems are negative. Exam: 15:45 Constitutional: This is a well developed, well nourished patient who is awake, alert, jh7 and in no acute distress. ENT: Nares patent. No nasal discharge, no septal abnormalities noted. Tympanic membranes are normal and external auditory canals are clear. Oropharynx with no redness, swelling, or masses, exudates, or evidence of obstruction, uvula midline. Mucous membranes moist. Neck: Trachea midline, no thyromegaly or masses palpated, and no cervical lymphadenopathy. Supple, full range of motion without nuchal rigidity, or vertebral point tenderness. No Meningismus. Cardiovascular: Regular rate and rhythm with a normal S1 and S2. No gallops, murmurs, or rubs. Normal PMI, no JVD. No pulse deficits. Respiratory: Lungs have equal breath sounds bilaterally, clear to auscultation and percussion. No rales, rhonchi or wheezes noted. No increased work of breathing, no retractions or nasal flaring. Abdomen/GI: Soft, non-tender, with normal bowel sounds. No distension or tympany. No guarding or rebound. No evidence of tenderness throughout. Skin: Warm, dry with normal turgor. Normal color with no rashes, no lesions, and no evidence of cellulitis. MS/ Extremity: Pulses equal, no cyanosis. Neurovascular intact. Full, normal range of motion. Neuro: Awake and alert, GCS 15, oriented to person, place, time, and situation. Motor strength 5/5 in all extremities. Sensory grossly intact. Normal gait. Vital Signs: 15:42 BP 110 / 84; Pulse 109; Resp 16; Temp 100.2; Pulse Ox 100% on R/A; iw MDM: 15:45 Differential diagnosis: Coronavirus, influenza. Data reviewed: vital signs, nurses [facility] notes, lab test result(s). Data interpreted: Pulse oximetry: is 100 %. Interpretation: normal. Counseling: I had a detailed discussion with the patient and/or guardian regarding: the historical points, exam findings, and any diagnostic results supporting the discharge/admit diagnosis, to return to the emergency department if symptoms worsen or persist or if there are any questions or concerns that arise at home. 16:55 Patient medically screened. [facility] 03/24 15:21 Order name: SARS-COV-2 RT PCR (Document "Date of Onset" if Symptomatic); Complete Time: [facility] 17:08 03/24 15:21 Order name: Flu; Complete Time: 16:52 [facility] Administered Medications: 15:11 CANCELLED (Inappropriate at this time): cloNIDine 0.1 mg PO once [facility] 15:43 Drug: Tylenol 1000 mg Route: PO; iw 16:10 Follow up: Response: No adverse reaction; Temperature is decreased Disposition Summary: 03/24/22 16:55 Discharge Ordered Location: Home [facility] Problem: new [facility] Symptoms: are unchanged [facility] Condition: Stable [facility] Diagnosis - Coronavirus infection, unspecified [facility] Followup: [facility] - With: Private Physician - When: 2 - 3 days - Reason: Recheck today's complaints Discharge Instructions: - Discharge Summary Sheet 7 - COVID-19 jh7 - COVID-19 Frequently Asked Questions 7 - 10 Things You Can Do to Manage Your COVID-19 Symptoms at Home - [place] [id number] Forms: - Medication Reconciliation Form 7 - Work release form iw - Thank You Letter [facility] Signatures: Dispatcher [employer] Ashley Boyle RN RN iw Kathe Dooley FNP FNP [facility] Corrections: (The following items were deleted from the chart) 15:11 15:11 cloNIDine 0.1 mg PO once ordered. [place] [id number]
--- NOTE | 2022-03-24 16:56 | ER ---
Nurse's Notes [facility] Name: Violeta Humphrey Age: 22 yrs Sex: Male : 2000 Arrival Date: 03/24/2022 Time: 14:31 Bed Waiting Private MD: Diagnosis: Coronavirus infection, unspecified Presentation: 03/24 15:36 Acuity: NEIL 4 iw 15:42 Chief complaint: Patient states: dizzy, body ache,s fever started this morning. iw Coronavirus screen: Client presents with at least one sign or symptom that may indicate coronavirus-19. Ebola Screen: Patient negative for fever greater than or equal to 101.5 degrees Fahrenheit, and additional compatible Ebola Virus Disease symptoms Patient denies exposure to infectious person. Patient denies travel to an Ebola-affected area in the 21 days before illness onset. No symptoms or risks identified at this time. Initial Sepsis Screen: Does the patient meet any 2 criteria? No. Patient's initial sepsis screen is negative. Does the patient have a suspected source of infection? No. Patient's initial sepsis screen is negative. Risk Assessment: Do you want to hurt yourself or someone else? Patient reports no desire to harm self or others. Onset of symptoms was March 24, 2022. 15:42 Method Of Arrival: Ambulatory iw Triage Assessment: 15:36 General: Appears in no apparent distress. Behavior is calm, cooperative. iw Historical: - Allergies: 15:43 No Known Allergies; iw - Home Meds: 15:43 None [Active]; iw - PMHx: 15:43 None; iw - Immunization history:: Adult Immunizations unknown. - Social history:: Smoking status: . Screenin:03 Abuse screen: Denies threats or abuse. Denies injuries from another. Nutritional iw screening: No deficits noted. Tuberculosis screening: No symptoms or risk factors identified. Fall Risk None identified. Assessment: 15:36 General: Appears in no apparent distress. Behavior is calm, cooperative. General: iw Reports fever for feeling ill for fatigue for. Pain: Complains of pain in head. Neuro: Level of Consciousness is awake, alert, obeys commands, Oriented to person, place, time, situation, Moves all extremities. Full function. Cardiovascular: Patient's skin is warm and dry. Respiratory: Respiratory effort is even, unlabored, Respiratory pattern is regular, symmetrical. Derm: Skin is intact, is healthy with good turgor. Musculoskeletal: Range of motion: intact in all extremities. Vital Signs: 15:42 BP 110 / 84; Pulse 109; Resp 16; Temp 100.2; Pulse Ox 100% on R/A; iw ED Course: 14:31 Patient arrived in ED. mr 14:35 Kathe Dooley, [facility]UF [facility] 7 14:35 Edgard Batres MD is Attending Physician. jh7 15:31 Ashley Davila, RN is Primary Nurse. iw 15:36 Triage completed. iw 15:36 Patient has correct armband on for positive identification. iw 15:43 Arm band placed on. iw 17:03 No provider procedures requiring assistance completed. Patient did not have IV access iw during this emergency room visit. Administered Medications: 15:11 CANCELLED (Inappropriate at this time): cloNIDine 0.1 mg PO once [facility] 15:43 Drug: Tylenol 1000 mg Route: PO; iw 16:10 Follow up: Response: No adverse reaction; Temperature is decreased iw Medication: 15:36 VIS not applicable for this client. iw Outcome: 16:55 Discharge ordered by . [facility] 17:03 Discharged to home ambulatory. iw 17:03 Condition: good 17:03 Discharge instructions given to patient, Instructed on discharge instructions, the need for admit, Demonstrated understanding of instructions, follow-up care. 17:04 Patient left the ED. iw Signatures: Sofía Garcia Ashley Davila, RN RN iw Kathe Dooley FNP PHONE B[employer]ER [facility]
[2022-03-24 18:35] VITALS: BP 110/84; TEMP 100.2; O2SAT 100
== END 2022-03-24 17:04 | disposition home or self-care (01) ==
LOC: ER 14:29
DX: U07.1 COVID-19 (principal)
CPT/HCPCS: 87804 ×2; U0003; 99283

== ENCOUNTER 2022-03-29 12:08 | Emergency (ER) | payer BC ==
[2022-03-29 12:40] LABS: SARS-CoV-2 Antigen Rapid Res Negative (Negative)
--- NOTE | 2022-03-29 12:42 | EDPHYS ---
Physician Documentation [facility] Name: Violeta Humphrey Age: 22 yrs Sex: Male : 2000 Arrival Date: 03/29/2022 Time: 12:10 Bed 9 Private MD: ED Physician Edgard Batres Historical: - Allergies: 03/29 12:19 No Known Allergies; tw2 - Home Meds: 12:19 None [Active]; tw2 - PMHx: 12:19 None; tw2 - PSHx: 12:19 None; tw2 - Immunization history:: Client reports having NOT received the Covid vaccine. - Social history:: Smoking status: Patient reports the use of cigarette tobacco products, smokes one pack cigarettes per day. Vital Signs: 12:11 BP 132 / 82; Pulse 74; Resp 17; Temp 97.8(TE); Pulse Ox 100% on R/A; Weight 70.31 kg tw2 (R); Height 5 ft. 10 in. (177.80 cm); Pain 0/10; 12:11 Body Mass Index 22.24 (70.31 kg, 177.80 cm) tw2 MDM: 12:16 Patient medically screened. [facility] 12:41 Data reviewed: vital signs, nurses notes. Counseling: I had a detailed discussion with kay the patient and/or guardian regarding: the historical points, exam findings, and any diagnostic results supporting the discharge/admit diagnosis, the need for outpatient follow up, to return to the emergency department if symptoms worsen or persist or if there are any questions or concerns that arise at home. 03/29 12:17 Order name: SARS RAPID; Complete Time: 12:41 bd Administered Medications: No medications were administered Disposition Summary: 03/29/22 12:41 Discharge Ordered Location: Home [facility] Condition: Stable [facility] Diagnosis - Person with feared health complaint in whom no diagnosis is made [facility] Followup: [facility] - With: Private Physician - When: As needed - Reason: Recheck today's complaints, Continuance of care, Re-evaluation by your physician Discharge Instructions: - Form - Return To Work joie - COVID-19 [facility] - Discharge Summary Sheet tw2 Forms: - Medication Reconciliation Form [facility] - Thank You Letter [facility] - Antibiotic Education [facility] - Work release form tw2 - Prescription Opioid Use [facility] Signatures: Dispatcher [employer] Demetrio George PA PA jmm Wise, Tara, RN RN tw2
--- NOTE | 2022-03-29 12:42 | ER ---
Nurse's Notes [facility] Name: Violeta Humphrey Age: 22 yrs Sex: Male : 2000 Arrival Date: 03/29/2022 Time: 12:10 Bed 9 Private MD: Diagnosis: Person with feared health complaint in whom no diagnosis is made Presentation: 03/29 12:11 Chief complaint: Patient states: i just need a COVID test. i tested POSITIVE Sunday and my work is requiring me to have a negative test. i am feeling better. not running fever. i just want to get back to work. Coronavirus screen: At this time, the client does not indicate any symptoms associated with coronavirus-19. Ebola Screen: Patient denies travel to an Ebola-affected area in the 21 days before illness onset. Initial Sepsis Screen: Does the patient meet any 2 criteria? No. Patient's initial sepsis screen is negative. Does the patient have a suspected source of infection? No. Patient's initial sepsis screen is negative. Risk Assessment: Do you want to hurt yourself or someone else? Patient reports no desire to harm self or others. Onset of symptoms was March 29, 2022. 12:11 Method Of Arrival: Ambulatory tw2 12:11 Acuity: NEIL 4 tw2 12:11 Note provider LINDA Atkinson in triage room at this time discussing poc with pt. tw2 Triage Assessment: 12:19 General: Appears in no apparent distress. slender, well groomed, Behavior is calm, tw2 cooperative, appropriate for age. Pain: Denies pain. Neuro: Level of Consciousness is awake, alert, obeys commands, Oriented to person, place, time, situation. Respiratory: Airway is patent Respiratory effort is even, unlabored, Respiratory pattern is regular, symmetrical. Historical: - Allergies: 12:19 No Known Allergies; tw2 - Home Meds: 12:19 None [Active]; tw2 - PMHx: 12:19 None; tw2 - PSHx: 12:19 None; tw2 - Immunization history:: Client reports having NOT received the Covid vaccine. - Social history:: Smoking status: Patient reports the use of cigarette tobacco products, smokes one pack cigarettes per day. Screenin:11 Abuse screen: Denies threats or abuse. Nutritional screening: No deficits noted. tw2 Tuberculosis screening: No symptoms or risk factors identified. Fall Risk None identified. Assessment: 13:17 Reassessment: Patient appears in no apparent distress at this time. No changes from tw2 previously documented assessment. Patient and/or family updated on plan of care and expected duration. Pain level reassessed. Patient is alert, oriented x 3, equal unlabored respirations, skin warm/dry/pink. pt states "i just need something that says NEGATIVE on there to show then at work", pt results printed for pt. Vital Signs: 12:11 BP 132 / 82; Pulse 74; Resp 17; Temp 97.8(TE); Pulse Ox 100% on R/A; Weight 70.31 kg tw2 (R); Height 5 ft. 10 in. (177.80 cm); Pain 0/10; 12:11 Body Mass Index 22.24 (70.31 kg, 177.80 cm) tw2 ED Course: 12:10 Patient arrived in ED. rg4 12:11 Arm band placed on. tw2 12:14 Demetrio Carrera PA is PHCP. [facility] 12:14 Edgard Batres MD is Attending Physician. [facility] 12:18 Triage completed. tw2 12:19 pt returned to lobby to wait results at this time. tw2 12:20 SARS RAPID Sent. tw2 13:17 Chanell Salciod, RN is Primary Nurse. tw2 13:17 No provider procedures requiring assistance completed. IV discontinued, intact, tw2 bleeding controlled, No redness/swelling at site. Pressure dressing applied. Administered Medications: No medications were administered Medication: 12:19 VIS not applicable for this client. tw2 Outcome: 12:41 Discharge ordered by . [facility] 13:17 Discharged to home ambulatory. tw2 13:17 Condition: stable 13:17 Discharge instructions given to patient, Instructed on discharge instructions, follow up and referral plans. Demonstrated understanding of instructions, follow-up care. 13:18 Patient left the ED. tw2 Signatures: Demetrio Carrera PA PA jmm Wise, Tara, RN RN tw2 Radha Sanford rg4 Corrections: (The following items were deleted from the chart) 12:20 12:11 Chief complaint: Patient states: i just need a COVID test. i tested POSITIVE tw2 Sunday and my work is requiring me to have a negative test. i am feeling better. not running fever currently tw2
[2022-03-29 14:07] VITALS: BP 132/82; TEMP 97.8; O2SAT 100
== END 2022-03-29 13:18 | disposition home or self-care (01) ==
LOC: ER 12:08
DX: Z20.822 Contact with and (suspected) exposure to COVID-19 (principal)
CPT/HCPCS: 36415; 87811